=== PATIENT | male | born 1985 ===

== ENCOUNTER 2016-09-04 11:23 | Emergency (ER) | payer OTHER ==
[2016-09-04 11:36] VITALS: BP 137/86; PULSE 60; RESP 18; TEMP 98.3; O2SAT 100
--- NOTE | 2016-09-04 12:04 | RAD ---
HISTORY: sob, pain COMPARISON: No prior. TECHNIQUE: Chest PA and lateral FINDINGS: LUNGS: No active pulmonary disease. PLEURA: No significant pleural effusion identified. No pneumothorax apparent. CARDIOVASCULAR: Normal. OSSEOUS STRUCTURES: No significant abnormalities. VISUALIZED UPPER ABDOMEN: Normal. OTHER FINDINGS: None. IMPRESSION: No active disease.
--- NOTE | 2016-09-04 13:07 | C.PDOC ---
History Of Present Illness 30 y/o male presents to ED with complaints of intermittent midsternal chest tightness resolved on its own but pain developed this morning after breakfast. Patient denies SOB, cough, numbness, weakness or fever. No other complaints at this time. Time Seen by Provider: 09/04/16 11:50 Chief Complaint (Nursing): Chest Pain History Per: Patient History/Exam Limitations: no limitations Onset/Duration Of Symptoms: Days Past Medical History Reviewed: Historical Data, Nursing Documentation, Vital Signs Vital Signs: Last Vital Signs Temp 98.3 F 09/04/16 11:35 Pulse 60 09/04/16 11:35 Resp 18 09/04/16 11:35 BP 137/86 09/04/16 11:35 Pulse Ox 100 09/04/16 13:33 - Medical History PMH: No Chronic Diseases Surgical History: No Surg Hx Family History: States: No Known Family Hx - Social History Hx Alcohol Use: Yes Hx Substance Use: No - Immunization History Hx Tetanus Toxoid Vaccination: No Hx Influenza Vaccination: No Review Of Systems Constitutional: Negative for: Fever, Chills ENT: Negative for: Nose Congestion, Throat Pain Cardiovascular: Positive for: Chest Pain. Negative for: Palpitations Respiratory: Negative for: Cough, Shortness of Breath Gastrointestinal: Negative for: Nausea, Vomiting, Diarrhea Neurological: Negative for: Weakness, Numbness, Headache, Dizziness Physical Exam - Physical Exam Appears: Non-toxic, Other (Anxious) Skin: Normal Color, Warm, No Diaphoretic, No Pale, No Rash Head: Atraumatic, Normacephalic Eye(s): bilateral: Normal Inspection, EOMI Oral Mucosa: Moist Neck: Normal ROM Chest: Symmetrical, No Deformity, Tenderness (Tenderness to anterior chest wall) Cardiovascular: Rhythm Regular Respiratory: Normal Breath Sounds, No Rales, No Rhonchi, No Wheezing Extremity: Normal ROM, No Pedal Edema Neurological/Psych: Oriented x3, Normal Speech, Normal Cognition, Other (No focal deficits) ED Course And Treatment ECG: Interpreted By Me, Viewed By Me ECG Rhythm: Sinus Rhythm ECG Interpretation: Normal Rate From EC (Early repolarization ) O2 Sat by Pulse Oximetry: 100 (Room air ) Pulse Ox Interpretation: Normal Medical Decision Making Medical Decision Makin y.o male with midsternal chest pain s.p eating. Patient appears anxious but in no acute distress. He has mild tenderness to anterior chest wall. ASA ordered and EKG was obtained during triage. CXR ordered and reviewed showing no acute disease. Upon reevaluation patient resting comfortably talking on the phone. Patient reports pain has improved and feels comfortable going home and will be discharged. Patient given follow up instructions. Instructed to return to ER if symptoms worsen or new symptoms arise. Disposition Counseled Patient/Family Regarding: Need For Followup, Rx Given - Disposition Referrals: [facility] [Outside] Disposition: HOME/ ROUTINE Disposition Time: 13:06 Condition: STABLE Additional Instructions: Vaya a longo mdico o la clnica en 2-5 rahman sin falta, para mas evaluacin. [place] los medicamentos jared indicado. Volver a la tamica de emergencia en cualquier momento si los sntomas persisten o empeoran. 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 - Scribe Statement The provider has reviewed the documentation as recorded by the Matthewibglenda Salgado All medical record entries made by the Matthewibglenda were at my direction and personally dictated by me. I have reviewed the chart and agree that the record accurately reflects my personal performance of the history, physical exam, medical decision making, and the department course for this patient. I have also personally directed, reviewed, and agree with the discharge instructions and disposition.
--- NOTE | 2016-09-08 12:50 | CARD ---
APPROVED REPORT EKG Measurement Heart [id number] <Conclusion> Normal sinus rhythm Early repolarization Normal ECG
== END 2016-09-04 13:16 | disposition home or self-care (01) ==
LOC: C.ER 11:23
DX: R07.89 Other chest pain (principal)